=== PATIENT | male | born 2000 | race Caucasian/White ===

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

== ENCOUNTER 2018-02-18 00:45 | Emergency (ER) | payer OTHER ==
--- NOTE | 2018-02-18 01:16 | ED ---
Substance Abuse/Use - HPI Summary HPI Summary: This patient is a 17 year old male presenting to [facility] with a chief complaint of EtOH intoxication. Patient was brought by friends as he needs major help. Patient admits to taking Xanax, Adderall, and drinking EtOH. Patient is lethargic, but nods and shakes his head to questions. However, he does not give any details. Level 5 Caveat: AMS - History Of Current Complaint Chief Complaint: EDSubstanceAbuse Stated Complaint: ETOH Time Seen by Provider: 02/18/18 01:08 Hx Obtained From: Patient Hx From Patient Unobtainable Due To: Altered Mental Status Onset/Duration of Drug/ETOH Abuse: Hours Ingestion History: Type/Name Of Drug - EtOH, Xanax, Adderal Overdose Characteristics: Oral Severity Currently: Moderate Character: Lethargic Aggravating Factor(s): Nothing Alleviating Factor(s): Nothing - Allergies/Home Medications Allergies/Adverse Reactions: Allergies Allergy/AdvReac Type Severity Reaction Status Date / Time No Known Allergies Allergy Verified 12/19/17 02:01 PMH/Surg Hx/FS Hx/Imm Hx Previously Healthy: Yes Opthamlomology History: Denies: Hx Legally Blind EENT History: Denies: Hx Deafness Infectious Disease History: Unable to Obtain/Confirm Infectious Disease History: Denies: Traveled Outside the [place] in Last 30 Days - Family History Known Family History: Positive: Unknown Family History: LEVEL 5 CAVEAT: Exam limited due to the patient being uncooperative - Social History Alcohol Use: Occasionally Substance Use Type: Reports: None Smoking Status (MU): Never Smoked Tobacco Review of Systems Negative: Fever Positive: Other - EtOH intoxication All Other Systems Reviewed And Are Negative: No - Comments Additional Review of Systems Comments: ROS limited due to Level 5 Caveat: AMS Physical Exam - Summary Physical Exam Summary: Appearance: Well-appearing, Well-nourished, lying in bed comfortable Skin: Warm, dry, no obvious rash Eyes: sclera anicteric, no conjunctival pallor ENT: mucous membranes moist Neck: deferred Respiratory: No signs of respiratory distress Cardiovascular: Appears well perfused, pulses are nml Abdomen: deferred Musculoskeletal: Moving all 4 extremities without obvious discomfort Triage Information Reviewed: No Vital Signs On Initial Exam: Initial Vitals Temp Pulse Resp BP Pulse Ox 98.7 F 89 21 117/79 99 02/18/18 00:52 02/18/18 00:52 02/18/18 00:52 02/18/18 00:52 02/18/18 00:52 Vital Signs Reviewed: No Completion Of Physical Exam Limited Due To: Altered Mental Status, Level 5 Diagnostics - Vital Signs Vital Signs Temp Pulse Resp BP Pulse Ox 02/18/18 00:52 98.7 F 89 21 117/79 99 - Laboratory Result Diagrams: 02/18/18 01:19 02/18/18 01:19 Lab Statement: Any lab studies that have been ordered have been reviewed, and results considered in the medical decision making process. Course/Dx - Course Assessment/Plan: This patient is a 17 year old male presenting to [facility] with a chief complaint of EtOH intoxication. Urinalysis obtained. Patient will be discharged with a dx of EtOH intoxication. Patient is advised to follow up with PCP if needed. The patient is agreeable with this plan. - Diagnoses Provider Diagnoses: Alcohol intoxication Discharge - Sign-Out/Discharge Documenting (check all that apply): Patient Departure - Discharge Plan Condition: Improved Disposition: HOME Patient Education Materials: Alcohol Intoxication (ED) Referrals: [facility] [Outside] - Billing Disposition and Condition Condition: IMPROVED Disposition: Home - Attestation Statements Document Initiated by Scribe: Yes Documenting Scribe: Dangelo Garrido Provider For Whom Maura is Documenting (Include Credential): Aleksandr Allen MD Scribe Attestation: Dangelo Reese, scribed for Aleksandr Allen MD on 02/20/18 at 1332. Scribe Documentation Reviewed: Yes Provider Attestation: The documentation as recorded by the Dangelo more accurately reflects the service I personally performed and the decisions made by , Aleksandr Allen MD
[2018-02-18 01:31] LABS: ABS Basophils 0 10^3/ul (0-0.2); ABS Eosinophils 0 10^3/ul (0-0.6); ABS Lymphocytes 1.8 10^3/ul (1.0-4.8); ABS Monocytes 0.3 10^3/ul (0-0.8); ABS Nucleated RBC 0 10^3/ul; Eosinophil % 0.7 % (0-6); Hematocrit 44 % (42-52); Hemoglobin 15.5 g/dl (14.0-18.0); Lymphocyte % 29.3 % (25-47); Mean Corpuscular HGB Conc 35 g/dl (31-36); Mean Corpuscular Hemoglobin 31 pg (27-31); Mean Corpuscular Volume 89 fL (80-94); Mean Platelet Volume 7.1 um3 (7.4-10.4); Nucleated Red Blood Cells % 0.1; Platelet Count 224 10^3/ul (150-450); Red Blood Count 4.98 10^6/ul (4.00-5.40); Red Cell Distribution Width 13 % (10.5-15); White Blood Count 6.1 10^3/ul (3.5-10.8)
[2018-02-18 01:52] LABS: EGFR Non-African American 132.1 (>60)
[2018-02-18 06:56] VITALS: BP 105/67
== END 2018-02-18 06:55 | disposition home or self-care (01) ==
LOC: ED 00:45
DX: F10.129 Alcohol abuse with intoxication, unspecified (principal); F19.90 Other psychoactive substance use, unspecified, uncomplicated
CPT/HCPCS: 36415; 80053; 80320; 80329; 84443; 85025; 99282; G0480

== ENCOUNTER 2018-05-19 19:13 | Emergency (ER) | payer OTHER ==
[2018-05-19] MEDS ORDERED: Ondansetron INJ* 2 MG/ML VIAL IV ONE (19:39)
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
[2018-05-19] MEDS ORDERED: NS 0.9% 1000 ML* 1,000 ML IV ONE (20:01)
[2018-05-19 20:12] VITALS: BP 123/66
== END 2018-05-19 21:05 | disposition home health service (06) ==
LOC: UCEAST 19:13
DX: R10.31 Right lower quadrant pain (principal); F10.10 Alcohol abuse, uncomplicated
CPT/HCPCS: 96360; 96374; 99212; G0463; J2405

== ENCOUNTER → 2018-05-19 21:22 | Emergency (ER) | payer OTHER ==
[2018-05-19 21:39] VITALS: BP 117/69
== END | disposition left against medical advice (07) ==
LOC: ED 21:22
DX: R11.10 Vomiting, unspecified (principal); R51 Headache; R10.9 Unspecified abdominal pain; Z53.21 Procedure and treatment not carried out due to patient leaving prior to being seen by health care provider